=== PATIENT | male | born 1975 | race American Indian/Alaskan Native ===

== ENCOUNTER 2020-11-27 10:11 | Emergency (ER) | payer SELFPAY ==
[2020-11-27 10:22] VITALS: BP 115/83
--- NOTE | 2020-11-27 11:49 | Event Note ---
ED Screening Note ED Screening Note: states he has "inflamed hemorrhoids" states he has bright red blood in stool states he has been using medication at home has never seen GI or gen surgery for this complaint This initial assessment/diagnostic orders/clinical plan/treatment(s) is/are subject to change based on patients health status, clinical progression and re- assessment by fellow clinical providers in the ED. Further treatment and workup at subsequent clinical providers discretion. Patient/guardian urged not to elope from the ED as their condition may be serious if not clinically assessed and managed. Initial orders include: labs, ACC eval
[2020-11-27] MEDS ORDERED: LIDOCAINE VISCOUS 2% 15 ML ORAL LIQD TP ONE (12:28)
--- NOTE | 2020-11-27 12:29 | Emergency Department Report ---
ED GI Bleed HPI - General Chief complaint: GI Bleed Stated complaint: INFLAMMED HEMARRHOIDS Time Seen by Provider: 11/27/20 11:47 Source: patient Mode of arrival: Ambulatory Limitations: No Limitations - History of Present Illness Initial comments: 45-year-old male presents to the ER today with complaints of possible hemorrhoids. Patient states that he started noticing bleeding with bowel movements about a month and a half ago. He states that it was mild and intermittent but over the past 4 to 5 days the bleeding was heavier, and over the past 3 days it was just mainly blood when he was trying to have bowel movements. He described maroon-colored blood. He states that he feels like in the past 4 to 5 days he has passed about 1/2 bottle of blood. He does admit that in the past 1-1/2 months has been having alternating hard and soft stools. His last bowel movement was 3 days ago but the stool was soft. He does admit that he has straining with bowel movement. He reports associated rectal pain, burning, itching and mild swelling. He denies any associated abdominal pain. He denies any nausea or vomiting.. Sexual preference is heterosexual and he denies any rectal intercourse. Patient states he has never been officially diagnosed with hemorrhoids but his family members have hemorrhoids. He does have a past medical history of hypertension and tobacco use but no other significant past history MD complaint: blood on toilet paper, gross hematochezia, other -: Gradual (1.5 mth ago but worse in past 4-5 days ) - Related Data Previous Rx's Medication Instructions Recorded Last Taken Type Docusate Sodium [Colace] 100 mg PO BID #60 capsule 11/27/20 Unknown Rx Hydrocortisone [Anucort-HC SUPPOS] 25 mg RC BID #28 supp.rect 11/27/20 Unknown Rx Lidocaine 2% Uroject [Xylocaine 2% 10 ml TP QID PRN #15 jelly.appl 11/27/20 Unknown Rx Urojet] Allergies Allergy/AdvReac Type Severity Reaction Status Date / Time No Known Allergies Allergy Verified 11/27/20 10:22 ED Review of Systems ROS: Stated complaint: INFLAMMED HEMARRHOIDS Other details as noted in HPI Comment: All other systems reviewed and negative Constitutional: denies: chills, diaphoresis, fever, malaise, weakness Eyes: denies: eye pain, eye discharge, vision change ENT: denies: ear pain, throat pain Respiratory: denies: cough, shortness of breath, wheezing Endocrine: no symptoms reported Gastrointestinal: constipation, hematochezia. denies: abdominal pain, nausea, vomiting, diarrhea, hematemesis, melena Genitourinary: denies: urgency, dysuria, frequency Neurological: denies: headache, weakness, numbness, paresthesias, confusion, abnormal gait, vertigo Psychiatric: denies: anxiety, depression Hematological/Lymphatic: as per HPI. denies: easy bleeding, easy bruising, swollen glands ED Past Medical Hx - Past Medical History Hx Hypertension: Yes - Surgical History Additional Surgical History: r hand sx- 2016 - Social History Smoking Status: Heavy Tobacco Smoker Substance Use Type: None - Medications Home Medications: Home Medications Medication Instructions Recorded Confirmed Last Taken Type Docusate Sodium [Colace] 100 mg PO BID #60 capsule 11/27/20 Unknown Rx Hydrocortisone [Anucort-HC SUPPOS] 25 mg RC BID #28 supp.rect 11/27/20 Unknown Rx Lidocaine 2% Uroject [Xylocaine 2% 10 ml TP QID PRN #15 jelly.appl 11/27/20 Unknown Rx Urojet] ED Physical Exam - General Limitations: No Limitations General appearance: alert, in no apparent distress - Head Head exam: Present: atraumatic, normocephalic, normal inspection - Eye Eye exam: Present: normal appearance, PERRL, EOMI Pupils: Present: normal accommodation - ENT ENT exam: Present: normal exam, mucous membranes moist - Neck Neck exam: Present: normal inspection, full ROM - Respiratory Respiratory exam: Present: normal lung sounds bilaterally. Absent: respiratory distress - Cardiovascular Cardiovascular Exam: Present: regular rate, normal rhythm, normal heart sounds - GI/Abdominal GI/Abdominal exam: Present: soft. Absent: distended, tenderness, guarding, rebound - Rectal Rectal exam: Present: normal rectal tone, heme (+) stool, hemorrhoids ( single small ruptured hemorrhoid noted about 12:00 of the anus, it was tender to palpated. FAIZAN was uncomfortable and painful palpation but there was no gross blood, no induration, mass or fluctuance), other (scant amount of pinkish yellow stool noted. ) - Neurological Exam Neurological exam: Present: alert, oriented X3, CN II-XII intact, normal gait - Psychiatric Psychiatric exam: Present: normal affect, normal mood - Skin Skin exam: Present: intact ED Course Vital Signs 11/27/20 10:20 Temperature 98.5 F Pulse Rate 71 Respiratory 20 Rate Blood Pressure 115/83 O2 Sat by Pulse 100 Oximetry ED Medical Decision Making - Lab Data Result diagrams: 11/27/20 11:58 11/27/20 11:58 - Medical Decision Making Labs reviewed -CBC and CMP unremarkable. Patient is well-appearing, not toxic and not in any acute distress. He has a soft nontender abdomen. He is neurologically intact with a normal gait. Suspect that the bleeding may be related to hemorrhoids at this time. No indication for any further testing at this time. There is no indication for admission or emergent GI or surgical consult at this time. His vital signs are stable Discussed suspected diagnosis and treatment plan with patient. Will be given prescription for Anusol suppositories, and Colace to help soften his stool but he will be given referral to GI or general surgery for further evaluation if his symptoms become recurrent or persist. Patient expressed understanding of instructions and agree with plan. Patient stable at time of discharge. Critical care attestation.: If time is entered above; I have spent that time in minutes in the direct care of this critically ill patient, excluding procedure time. ED Disposition Clinical Impression: External hemorrhoid, Rectal bleed Disposition: - TO HOME OR SELFCARE Is pt being admited?: No Does the pt Need Aspirin: No Condition: Stable Instructions: Hemorrhoids, Rectal Bleeding, [id number] Additional Instructions: Use the anusol suppositories as prescribed. Take the colace as prescribed. I recommend increasing your fiber intake and drinking lots of water which will help with regular daily bowel movements. Try not straining with your bowel movements. Follow-up with general surgery or GI if your symptoms persist. Return to the ER if your symptoms changes or worsens in any way. Prescriptions: Hydrocortisone [Anucort-HC SUPPOS] 25 mg RC BID #28 supp.rect Docusate Sodium [Colace] 100 mg PO BID #60 capsule Lidocaine 2% Uroject [Xylocaine 2% Urojet] 10 ml TP QID PRN #15 jelly.appl PRN Reason: rectal pain Referrals: [facility] [Provider Group] - 3-5 Days WILMER MATAMOROS DO [Staff Physician] - 3-5 Days Forms: Accompanied Note, Work/School Release Form(ED) Time of Disposition: 13:35
[2020-11-27 12:56] LABS: Hematocrit 36.3 % (35.5-45.6); Hemoglobin 12.6 gm/dl (11.8-15.2); Mean Corpuscular HGB Conc 35 % (32-34); Mean Corpuscular Volume 97 fl (84-94); Platelet Count 411 K/mm3 (140-440); Red Blood Count 3.74 M/mm3 (3.65-5.03); Red Cell Distribution Width 14.4 % (13.2-15.2)
[2020-11-27 13:15] LABS: Albumin 4.1 g/dL (3.9-5); Calcium 8.8 mg/dL (8.4-10.2)
[2020-11-27 14:26] LABS: Total Cells Counted 100
[2020-11-27 14:27] LABS: Platelet Estimate Consistent w Auto; RBC Morphology Normal
== END 2020-11-27 13:59 | disposition home or self-care (01) ==
LOC: ED 10:11
DX: K64.4 Residual hemorrhoidal skin tags (principal); K62.5 Hemorrhage of anus and rectum; I10 Essential (primary) hypertension; F17.200 Nicotine dependence, unspecified, uncomplicated; Z79.899 Other long term (current) drug therapy
CPT/HCPCS: 36415; 80053; 85007; 85025; 99283

== ENCOUNTER 2020-12-21 08:52 | Emergency (ER) | payer SELFPAY ==
[2020-12-21 09:41] VITALS: BP 127/69
--- NOTE | 2020-12-21 11:18 | Emergency Department Report ---
ED General Adult HPI - General Chief complaint: Rectal Pain Stated complaint: HEMMOROIDS Time Seen by Provider: 12/21/20 11:14 Source: patient Mode of arrival: Ambulatory Limitations: No Limitations - History of Present Illness Initial comments: 45-year-old male patient presents to emergency department with complaints of painful external hemorrhoids for several weeks. Patient was evaluated in the emergency department 3 weeks ago, at which time he was treated symptomatically and referred to general surgeon for definitive management. Patient states m edications have been ineffective in relieving his pain. He has returned to the emergency department requesting excision of his hemorrhoids. He has not contacted the general surgeon to arrange for outpatient follow-up. Denies fever, chills, abdominal pain, rectal bleeding, melena, diarrhea, constipation, purulent drainage. Denies all other complaints at this time. - Related Data Previous Rx's Medication Instructions Recorded Last Taken Type Docusate Sodium [Colace] 100 mg PO BID #60 capsule 11/27/20 Unknown Rx Hydrocortisone [Anucort-HC SUPPOS] 25 mg RC BID #28 supp.rect 11/27/20 Unknown Rx Lidocaine 2% Uroject [Xylocaine 2% 10 ml TP QID PRN #15 jelly.appl 11/27/20 Unknown Rx Urojet] Allergies Allergy/AdvReac Type Severity Reaction Status Date / Time No Known Allergies Allergy Verified 11/27/20 10:22 ED Review of Systems ROS: Stated complaint: HEMMOROIDS Other details as noted in HPI Other: GENERAL: Negative for fever, chills, weight change, anorexia, fatigue. ENT: Negative for ear pain, difficulty hearing, sore throat, nasal congestion, epistaxis. CARDIOVASCULAR: Negative for chest pain, palpitations, lower extremity swelling. PULMONARY: Negative for cough, dyspnea, wheezing, orthopnea, cyanosis. GASTROINTESTINAL: Positive for rectal pain. MUSCULOSKELETAL: Negative for joint pain, joint swelling, myalgias, back pain, neck pain. NEUROLOGICAL: Negative for headache, seizure, syncope, paresthesias, weakness. INTEGUMENTARY: Negative for erythema, rash, diaphoresis, laceration, ecchymosis. HEMATOLOGICAL: Negative for hemoptysis, hematemesis, hematochezia, hematuria. PSYCHIATRIC: Negative for hallucinations, suicidal ideation, homicidal ideation, anxiety, depression. ED Past Medical Hx - Past Medical History Previous Medical History?: Yes Hx Hypertension: Yes - Surgical History Past Surgical History?: Yes Additional Surgical History: r hand sx- 2016 - Social History Smoking Status: Heavy Tobacco Smoker Substance Use Type: None - Medications Home Medications: Home Medications Medication Instructions Recorded Confirmed Last Taken Type Docusate Sodium [Colace] 100 mg PO BID #60 capsule 11/27/20 Unknown Rx Hydrocortisone [Anucort-HC SUPPOS] 25 mg RC BID #28 supp.rect 11/27/20 Unknown Rx Lidocaine 2% Uroject [Xylocaine 2% 10 ml TP QID PRN #15 jelly.appl 11/27/20 Unknown Rx Urojet] ED Physical Exam - General Limitations: No Limitations - Other Other exam information: General: Awake, appropriately interactive, no acute distress. Neck: Supple. Full range of motion intact. Cardiovascular: Normal peripheral perfusion. Pulmonary: No respiratory distress. Patient is speaking normally without use of accessory muscles. 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 Two nonthrombosed external hemorrhoids present. No anal fissure. No evidence of pilonidal disease. No fluctuance or purulent drainage. No necrosis. Skin: No apparent rashes or lesions. Neurological: No facial asymmetry. Speech is clear. Follows commands. Patient is alert and oriented. Musculoskeletal: Moves all four extremities spontaneously with normal range of motion. Psych: Cooperative. Appropriate mood and affect. ED Course Vital Signs 12/21/20 09:40 Temperature 98.8 F Pulse Rate 75 Respiratory 14 Rate Blood Pressure 127/69 O2 Sat by Pulse 100 Oximetry ED Medical Decision Making - Medical Decision Making Differential diagnosis including but not limited to: thrombosed hemorrhoid, pilonidal disease, anorectal abscess, inflammatory bowel disease, foreign body, anal fissure Patient presents to the emergency department requesting definitive treatment for nonthrombosed hemorrhoids. He has been seen in the emergency department for this issue previously. He was referred to general surgeon but did not schedule an appointment. Symptoms are unchanged despite medical management. It was explained to the patient that operative intervention for his hemorrhoids would need to be arranged by a general surgeon. Patient is requesting immediate surgical consultation. It was explained to the patient that there is no clinical indication for emergent surgical intervention. He was offered refills of both topical and oral medications, which he refused. He has requested a work note and contact information for local general surgery practice. History, exam, diagnostic testing, and current condition do not suggest worrisome pathology to warrant further testing, continued ED treatment, admission, or surgical evaluation at this point. Given the low probability of a significant medical illness, it would be more likely to result in harm than benefit to perform further testing at this stage. Discussed findings, presumptive diagnosis, need for follow-up and specific signs/symptoms that shoul d prompt immediate return to the emergency department. Instructions were explained in detail to the patient in addition to giving written discharge information. Patient expressed understanding and was given the opportunity to ask questions, all of which were satisfactorily answered prior to discharge home. BILLING/CODING: This patient encounter does not represent a certified medical emergency. Critical care attestation.: If time is entered above; I have spent that time in minutes in the direct care of this critically ill patient, excluding procedure time. ED Disposition Clinical Impression: External hemorrhoids Disposition: DC-01 TO HOME OR SELFCARE Is pt being admited?: No Does the pt Need Aspirin: No Condition: Stable Instructions: Hemorrhoids Additional Instructions: Continue medications as previously prescribed. Increase your dietary fiber intake. You must follow-up with general surgeon for definitive management. Call today to schedule an appointment. See referral information below. Return to the emergency department immediately for new or worsening symptoms. Referrals: POLLO PURCELL MD [Staff Physician] - 3-5 Days Forms: Work/School Release Form(ED) Time of Disposition: 11:18
== END 2020-12-21 11:32 | disposition home or self-care (01) ==
LOC: ED 08:52
DX: K64.4 Residual hemorrhoidal skin tags (principal); I10 Essential (primary) hypertension; F17.200 Nicotine dependence, unspecified, uncomplicated; Z79.899 Other long term (current) drug therapy
CPT/HCPCS: 99281; 99282

== ENCOUNTER 2022-01-09 10:45 | Emergency (ER) | payer SELFPAY ==
[2022-01-09 11:32] VITALS: BP 127/77
--- NOTE | 2022-01-10 13:26 | Electrocardiograph Report ---
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
== END 2022-01-09 13:00 | disposition left against medical advice (07) ==
LOC: ED 10:45
DX: R07.9 Chest pain, unspecified (principal); R50.9 Fever, unspecified; Z53.21 Procedure and treatment not carried out due to patient leaving prior to being seen by health care provider
CPT/HCPCS: 93005